=== PATIENT | female | born 1975 | race Caucasian/White ===

== ENCOUNTER → 2016-10-02 | Outpatient (REF) | payer OTHER | LOC: M SFHCLERA 16:37 | PROVIDERS: ATTEND Nurse Practitioner Family | DX: J02.9 Acute pharyngitis, unspecified (principal) ==

== ENCOUNTER 2019-03-28 16:33 | Emergency (ER) | payer OTHER ==
[~2019-03-28] VITALS: Ht 157.5 cm; Wt 115.7 kg
[2019-03-28] MEDS ORDERED: FENO145T13 (18:04)
[2019-03-28] MEDS ORDERED: BUPR1TAB52 (18:04)
[2019-03-28] MEDS ORDERED: NALT50TA4 (18:04)
[2019-03-28] MEDS ORDERED: OMEP-221 (18:04)
[2019-03-28] MEDS ORDERED: VENL75CA47 (18:04)
[2019-03-28] MEDS ORDERED: ATEN50TA2 (18:04)
[2019-03-28] MEDS ORDERED: LEVO50TA5 (18:04)
[2019-03-28 18:50] LABS: HEMATOCRIT 42.1 % (36.0-47.0); HEMOGLOBIN 13.9 g/dl (12.0-15.5); MEAN CORPUSCULAR HEMOGLOBIN 28.6 pg (27.0-33.0); MEAN CORPUSCULAR VOLUME 86.6 fl (80.0-96.0); PLATELET COUNT, AUTOMATED 262 10^3/uL (150-450); RED BLOOD COUNT 4.86 10^6/uL (4.00-5.40); WHITE BLOOD COUNT 8.3 10^3/uL (4.0-10.0)
[2019-03-28 19:15] LABS: AMPHETAMINES LEVEL URINE NEGATIVE (NEGATIVE); BARBITURATES URINE NEGATIVE (NEGATIVE); BENZODIAZEPINES URINE NEGATIVE (NEGATIVE); CANNABINOIDS URINE NEGATIVE (NEGATIVE); COCAINE METABOLITE URINE NEGATIVE (NEGATIVE); METHADONE URINE NEGATIVE (NEGATIVE); OPIATES URINE NEGATIVE (NEGATIVE); PHENCYCLIDINE URINE NEGATIVE (NEGATIVE)
[2019-03-28 19:24] LABS: ALBUMIN 3.5 GM/DL (3.2-5.2); ALT/SGPT 141 U/L (12-78); BILIRUBIN,DIRECT 0.1 MG/DL (0.0-0.2); BILIRUBIN,TOTAL 0.4 MG/DL (0.2-1.0); BLOOD UREA NITROGEN 13 MG/DL (7-18); CALCIUM LEVEL 9.1 MG/DL (8.5-10.1); CARBON DIOXIDE LEVEL 28 MEQ/L (21-32); CHLORIDE LEVEL 106 MEQ/L (98-107); CREATININE FOR GFR 0.88 MG/DL (0.55-1.30); ETHYL ALCOHOL (ETHANOL) < 0.003 % (0.000-0.010); GLOMERULAR FILTRATION RATE > 60.0 (>58); GLUCOSE, FASTING 101 MG/DL (70-100); SALICYLATE LEVEL < 1.7 MG/DL (5.0-30.0); SODIUM LEVEL 140 MEQ/L (136-145); TOTAL PROTEIN 6.9 GM/DL (6.4-8.2)
[2019-03-28 19:25] LABS: ACETAMINOPHEN LEVEL < 2.0 UG/ML (10.0-30.0)
[2019-03-28 20:10] VITALS: BP 132/80
[2019-03-28] MEDS ORDERED: IBUPROFEN 800 MG TAB PO ONE (20:15)
[2019-03-28] MEDS ORDERED: ACETAMINOPHEN TAB 650MG DOSE (2X325MG) PO ONE (20:15)
== END 2019-03-28 20:24 | disposition home or self-care (01) ==
LOC: M ED 16:33
DX: F32.9 Major depressive disorder, single episode, unspecified (principal); F41.9 Anxiety disorder, unspecified; K57.32 Diverticulitis of large intestine without perforation or abscess without bleeding; Z79.899 Other long term (current) drug therapy
CPT/HCPCS: 80048; 80076; 80307; 84443; 85027; 99283; G0480

== ENCOUNTER → 2020-09-07 | Outpatient (REF) | payer OTHER ==
[~2020-09-07] MED LIST: ATEN50TA2; BUPR1TAB52; FENO145T7; LEVO50TA5; NALT50TA4; OMEP-221; VENL75CA47
[2020-09-07 15:05] LABS: ALT/SGPT 123 U/L (12-78); BILIRUBIN,DIRECT 0.1 MG/DL (0.0-0.2); BILIRUBIN,TOTAL 0.3 MG/DL (0.2-1.0); FERRITIN 16 NG/ML (8-252); IRON (FE) 40 UG/DL (50-170); PERCENT SATURATION 9.9 % (13.2-45.0); TOTAL IRON BINDING CAPACITY 405 UG/DL (250-450); TOTAL PROTEIN 7.6 GM/DL (6.4-8.2)
[2020-09-07 15:43] LABS: HEPATITIS B SURFACE ANTIGEN NEGATIVE (NEGATIVE)
[2020-09-07 16:11] LABS: HEPATITIS C VIRUS ABY INDEX < 0.0 INDEX (<0.8)
== END ==
LOC: M SFHCPLAZ 11:22
PROVIDERS: ATTEND Internal Medicine Infectious Disease
DX: R74.8 Abnormal levels of other serum enzymes (principal); Z83.49 Family history of other endocrine, nutritional and metabolic diseases

== ENCOUNTER → 2020-09-22 | Outpatient (CLI) | payer OTHER ==
--- NOTE | 2020-09-22 08:19 | REP ---
INDICATION: ELEVATED LFTS- LABS FIRST COMPARISON: None. TECHNIQUE: Real time sawyer scale ultrasound examination using curved array transducer. FINDINGS: Liver is enlarged and measures 22 cm in craniocaudal length with increased parenchymal echotexture suggesting fatty infiltration. Focal areas of fatty sparing adjacent to the gallbladder fossa noted. No further hepatic mass lesion or abnormality identified. The gallbladder is normal and without gallstones, wall thickening, or pericholecystic fluid. No biliary ductal dilatation is appreciated and the common bile duct measures 4.9 mm diameter. Right kidney is normal in reniform shape without hydronephrosis and measures 11.4 x 6.1 x 4.8 cm. No ascites in the visualized right upper quadrant. Visualized abdominal aorta appears normal. IMPRESSION: Hepatomegaly and hepatosteatosis. <Electronically signed by Narendra Felix > 09/22/20 0832
[2020-09-22 08:28] LABS: ALBUMIN 3.7 GM/DL (3.2-5.2); BILIRUBIN,DIRECT 0.1 MG/DL (0.0-0.2); BILIRUBIN,TOTAL 0.4 MG/DL (0.2-1.0); TOTAL PROTEIN 6.9 GM/DL (6.4-8.2)
[2020-09-23 19:11] LABS: ANA (HEP2) Negative (.); ANTI-MITOCHONDRIAL ANTIBODY 103.6 Units (0.0-20.0); ANTI-SMOOTH MUSCLE ANTIBODY 7 Units (0-19); LIVER-KIDNEY MICROSOMAL ABY <20.1 Units (0.0-20.0)
== END ==
LOC: M RAD 07:14
PROVIDERS: ATTEND Internal Medicine Infectious Disease
DX: R74.8 Abnormal levels of other serum enzymes (principal); K76.0 Fatty (change of) liver, not elsewhere classified; R16.0 Hepatomegaly, not elsewhere classified

== ENCOUNTER → 2020-12-08 | Outpatient (REF) | payer OTHER | LOC: M SFHCWAGY 13:15 | PROVIDERS: ATTEND Nurse Practitioner Women's Health | DX: Z12.4 Encounter for screening for malignant neoplasm of cervix (principal) | CPT/HCPCS: 87624; G0123 ==

== ENCOUNTER → 2020-12-20 | Outpatient (CLI) | payer OTHER ==
[~2020-12-20] MED LIST changes: -OMEP-221; +OMEP40CA5
== END ==
LOC: M WHC 14:36
PROVIDERS: ATTEND Nurse Practitioner Women's Health
DX: Z12.31 Encounter for screening mammogram for malignant neoplasm of breast (principal)

== ENCOUNTER 2024-09-05 07:08 | Day surgery (SDC) | payer OTHER ==
[~2024-09-05] VITALS: Ht 152.4 cm; Wt 87.4 kg
[~2024-09-05 07:08] MED LIST changes: +ADDE20CA3 PO; +ATEN50TA2 PO; +DICY1CAP8 PO; +FLUO60TA16 PO; +HUMI40KI SC; +LISI10TA22 PO; +OMEP40CA5 PO; +SYNT75TA PO
[2024-09-05] MEDS ORDERED: propofoL 200 MG/20 ML VIAL As Ordered ONE (08:02)
[2024-09-05] MEDS ORDERED: LIDOCAINE 2% 100MG/5ML SDV (FOR ANES.) As Ordered ONE (08:11)
[2024-09-05 08:31] VITALS: TEMP 97
[2024-09-05 08:50] VITALS: BP 124/66; O2SAT 98
== END 2024-09-05 09:00 | disposition home or self-care (01) ==
LOC: M OPP 07:08
PROVIDERS: ATTEND Surgery
DX: Z12.11 Encounter for screening for malignant neoplasm of colon (principal); K63.5 Polyp of colon; K57.30 Diverticulosis of large intestine without perforation or abscess without bleeding; K64.0 First degree hemorrhoids; Z80.0 Family history of malignant neoplasm of digestive organs; Z86.73 Personal history of transient ischemic attack (TIA), and cerebral infarction without residual deficits; G47.30 Sleep apnea, unspecified; Z91.018 Allergy to other foods; Z91.048 Other nonmedicinal substance allergy status; Z79.899 Other long term (current) drug therapy; Z98.84 Bariatric surgery status